=== PATIENT | male | born 1940 | race Caucasian/White ===

== ENCOUNTER 2023-05-20 11:11 | Emergency (ER) | payer BC, MEDICARE ==
[~2023-05-20] VITALS: Ht 185.4 cm; Wt 83.7 kg
[~2023-05-20 11:11] MED LIST: ALB0.5UD IH; ALBU18HF2 INH; AMLO5TAB PO; ASPI-611 PO; ATOR20TA66 PO; LACT1CAP65 PO; MONT-47 PO; MULT-38 PO; UBID100C45 PO
[2023-05-20 11:18] VITALS: BP 164/69; PULSE 80; TEMP 98.2; O2SAT 97
[2023-05-20 11:38] VITALS: RESP 15
== END 2023-05-20 12:14 | disposition home or self-care (01) ==
LOC: ER 11:12
DX: J20.9 Acute bronchitis, unspecified (principal); J44.9 Chronic obstructive pulmonary disease, unspecified; E11.9 Type 2 diabetes mellitus without complications; Z79.899 Other long term (current) drug therapy; Z79.82 Long term (current) use of aspirin
CPT/HCPCS: 71045; 99283